=== PATIENT | female | born 1985 | race Caucasian/White ===

== ENCOUNTER 2023-07-15 14:19 | Emergency (ER) | payer OTHER, SELFPAY ==
--- NOTE | ~2023-07-15 | US_ITS ---
EXAMINATION: US transvaginal DATE: 07/15/2023 17:57 INDICATION: vaginal bleeding since october 2022 TECHNIQUE: Multiple transabdominal and endovaginal sonographic images of the pelvis were obtained. COMPARISON: None. FINDINGS: Uterus: 10.7 x 6.5 x 7.4 cm. Endometrial complex measures 13 mm. Heterogeneous, circumscribed 4.9 cm submucosal mass in the posterior uterine body. Right Ovary: 3.0 x 2.2 x 2.5 cm. Vascular flow is present. No adnexal mass Left Ovary: 2.9 x 2.0 x 2.3 cm. Vascular flow is present. No adnexal mass. There is physiologic range free fluid in the pelvis. IMPRESSION: 4.9 cm submucosal fibroid. Reviewed, dictated and finalized at location K. IMPRESSION: 4.9 cm submucosal fibroid.
[2023-07-15 14:39] VITALS: BP 136/100; PULSE 128; RESP 20; TEMP 36.8; O2SAT 98
--- NOTE | 2023-07-15 15:10 | ED.FEMALEGU ---
HPI - Female Genitourinary General Chief complaint: Vaginal Bleeding <Roddy Mares APRN - Last Filed: 07/15/23 15:27> Stated complaint: vag bleed since 10/2022 <Roddy Mares APRN - Last Filed: 07/15/23 15:27> Time Seen by Provider: 07/15/23 15:10 <Roddy Mares APRN - Last Filed: 07/15/23 15:27> Focused HPI: Carolyne is a 38-year-old female patient presenting to the ER today with complaints of vaginal bleeding since October of 2022. She reports she was in October of 2022. States she did not have an , miscarriage, or live . Has not seen her OBGYN. Has been bleeding ever since-reports that she goes through 2-3 pads/tampons per day. Reports that the bleeding will stop periodically throughout the day and then resume. Is passing some blood clots. Reports some lower abdominal discomfort as well. She denies any urinary symptoms. Denies any dizziness but does feel weak. Has a frontal headache at this time that gets worse when she bends forward. General: Well-developed, well nourished, in no apparent distress. Head: Normocephalic, atraumatic. Cardio: Regular rate and rhythm, s1 and s2 normal, no murmur appreciated. Resp: Clear to auscultation bilaterally, no rhonchi, rales, wheezing or rubs. Abdomen: Soft, pliable, bowel sounds present in all quadrants, mild-tender to palpation over the lower abdomen/pelvis, no organomegly, no CVAT tenderness. Patient screened in triage and initial orders placed. Additional care and disposition to be based upon diagnostic testing and treatment. <Roddy Mares APRN - Last Filed: 07/15/23 15:27> Source: patient <Roddy Marse APRN - Last Filed: 07/15/23 15:27> family (daughter) <Amanda West MD - Last Filed: 07/15/23 23:56> Mode of arrival: ambulatory <Roddy Mares APRN - Last Filed: 07/15/23 15:27> Limitations: no limitations <Roddy Mares APRN - Last Filed: 07/15/23 15:27> History of Present Illness HPI Narrative: 39 presents with report of vaginal bleeding. Patient's previous medical assistant per diem was through [facility] in [place]. She states she is using 5-6 tampons per day. She was last confirmed with the her child in October 2021. She then notes that she had a positive test in October 2022 but suspect that she miscarried. She then had a test that was positive in May 2023 But a few weeks later had a negative test upon entry into a rehab facility for opiate use disorder. she states she was tested positive for Trichomonas but this was treated denies any other sexually transmitted infections. She is not currently sexually active and in her last episode a Cordis was several months ago. Denies any pain with intercourse at that time. She had experienced some low abdominal pain. No fevers. Denies any mucosal bleeding or epistaxis. She denies any GI bleed. <Amanda West MD - Last Filed: 07/15/23 23:56> Related Data Allergies/Adverse reactions: Allergies Allergy/AdvReac Type Severity Reaction Status Date / Time No Known Allergies Allergy Mild Verified 07/15/23 20:06 <Roddy Mares APRN - Last Filed: 07/15/23 15:27> [facility] Past Medical History Medical History: Medical History Fentanyl use disorder, mild, in early remission <Roddy Mares APRN - Last Filed: 07/15/23 15:27> Social History Social History: Social History (Updated 07/15/23 @ 23:50 by Amanda West MD) Smoking status: Never smoker Substance use type: former substance user and IV drugs Other substance usage details: fentanyl ( opiate use disorder in remission) <Roddy Mares APRN - Last Filed: 07/15/23 15:27> Comments At the time of my signature, I reviewed and agree with the nursing past medical, surgica
[2023-07-15 15:35] LABS: Appearance Urine Cloudy (Clear); Bacteria Urine None Seen /hpf; Bilirubin Urine Negative (Negative); Blood Urine Negative (Negative); Color Urine Yellow (Yellow); Glucose Urine UA Negative (Negative); Ketones Urine Negative (Negative); Leukocyte Esterase Ur Negative LEU/UL (Negative); Nitrate Urine Negative (Negative); Non Pathogenic Casts 0-2; Protein Urine Negative (Negative); RBC Urine 0-2 /hpf (0-2); Specific Grav Ur 1.011 (1.001-1.035); Squamous Epithelial Cell Urine Few /hpf (Few); Urobilinogen Urine 0.2 mg/dL (<2.0); WBC Urine 0-5 /hpf (0-3)
[2023-07-15 15:39] LABS: Basophils Percent Auto 0.7 % (0.2-1.2); Eosinophils Percent Auto 0.9 % (0-4.4); Hematocrit 39.8 % (37.0-47.0); Hemoglobin 13.2 g/dL (12.0-15.0); Immature Granulocyte Absolute 0.01 K/mm3 (0.00-0.031); Immature Granulocyte Percent A 0.2 % (0-0.5); Mean Corpuscular HGB Conc 33.2 g/dl (32-36); Mean Corpuscular Hemoglobin 27.2 pg (26-34); Mean Corpuscular Volume 82.1 fl (80-100); Mean Platelet Volume 9.1 fl (7.4-10.4); Monocytes Absolute Auto 0.3 K/mm3 (0.1-0.6); Monocytes Percent Auto 6.5 % (2.6-8.5); Neutrophils Absolute Auto 3.1 K/mm3 (1.3-6.7); Neutrophils Percent Auto 67.7 % (45.5-73.1); Platelet Count Result 346 k/mm3 (150-375); Red Blood Count 4.85 M/mm3 (4.2-5.4); Red Cell Distribution Width 13.7 % (11.5-14.5); White Blood Count 4.6 K/mm3 (4.5-10.0)
[2023-07-15 15:42] LABS: Add Urine Microscopic? YES
[2023-07-15 15:49] LABS: Prothrombin Time 14.1 Seconds (11.1-14.7)
[2023-07-15 15:50] LABS: Partial Thromboplastin Time 31.1 Seconds (22.3-36.8)
[2023-07-15 15:54] LABS: Alanine Aminotransferase 18 U/L (6-35); Albumin Level 4.9 g/dL (3.5-5.1); Alkaline Phosphatase 95 U/L (38-126); Anion Gap 8 mmol/L (4-12); Aspartate Amino Transferase 25 U/L (14-36); Bilirubin,Total 0.8 mg/dL (0.2-1.3); Blood Urea Nitrogen 13 mg/dL (7-17); Calcium 9.4 mg/dL (8.4-10.2); Carbon Dioxide 26 mmol/L (22-30); Chloride 104 mmol/L (98-107); Estimated CRCL calculation 98 ml/min; Estimated Glomerular Filt Rate > 60; Glucose 104 mg/dL (65-110); Potassium 3.9 mmol/L (3.4-5.0); Sodium 138 mmol/L (137-145)
[2023-07-15 17:09] VITALS: BP 115/80; PULSE 88; RESP 20; TEMP 36.9; O2SAT 100
[2023-07-15 18:42] LABS: Chlamydia trachomatis NOT DETECTED (NOT DETECTE); Neisseria gonorrhoeae PCR NOT DETECTED (NOT DETECTE)
--- NOTE | 2023-07-15 19:09 | PC.NURSE ---
Report received from ISADORA Kahn. Assumed care of patient at this time.
[2023-07-15 20:04] VITALS: BP 117/74; PULSE 76; RESP 15; O2SAT 100
[2023-07-15 21:05] LABS: Trichomonas Vag PCR NOT DETECTED (NOT DETECTE)
== END 2023-07-15 20:22 | disposition home or self-care (01) ==
PROVIDERS: Nurse Practitioner Family; Emergency Provider Student in an Organized Health Care Education/Training Program
DX: N93.9 Abnormal uterine and vaginal bleeding, unspecified (principal)
CPT/HCPCS: 36415; 76830; 80053; 81001; 81025; 85025; 85610; 85730; 87491; 87591; 87661; 99284